=== PATIENT | female | born 1955 | race Caucasian/White ===

== ENCOUNTER 2023-04-29 12:30 | Outpatient (RCR) | payer OTHER, SELFPAY | END 2023-07-21 23:59 | disposition home or self-care (01) | LOC: ANHBWCAUD 12:30 | DX: Z46.1 Encounter for fitting and adjustment of hearing aid (principal) | CPT/HCPCS: 92593; 99199 ==

== ENCOUNTER 2023-05-06 11:50 | Outpatient (CLI) | payer MEDICARE, SELFPAY | END 2023-05-06 11:51 | disposition home or self-care (01) | LOC: ANHBWCAUD 11:51 | PROVIDERS: Visit Provider Hospitalist | DX: H90.3 Sensorineural hearing loss, bilateral (principal) | CPT/HCPCS: 92557; 92567 ==